=== PATIENT | male | born 1990 | race Two or more races ===

== ENCOUNTER 2017-09-13 09:27 | Emergency (ER) | payer OTHER ==
[~2017-09-13] VITALS: Ht 185.4 cm; Wt 83.9 kg
[2017-09-13 09:42] VITALS: BP 121/63
== END 2017-09-13 09:49 | disposition home or self-care (01) ==
LOC: ER 09:28
DX: J45.909 Unspecified asthma, uncomplicated (principal)
CPT/HCPCS: 99283; A4606; Z7610

== ENCOUNTER 2017-10-14 05:11 | Emergency (ER) | payer OTHER ==
[~2017-10-14] VITALS: Ht 185.4 cm; Wt 86.2 kg
[2017-10-14 05:25] VITALS: BP 122/77
== END 2017-10-14 05:32 | disposition home or self-care (01) ==
LOC: ER 05:12
DX: J45.909 Unspecified asthma, uncomplicated (principal); Z76.0 Encounter for issue of repeat prescription
CPT/HCPCS: 99283; A4606; Z7610

== ENCOUNTER 2017-11-06 12:24 | Emergency (ER) | payer OTHER ==
[~2017-11-06] VITALS: Ht 185.4 cm; Wt 83.9 kg
[2017-11-06 12:28] VITALS: BP 146/86
== END 2017-11-06 12:52 | disposition home or self-care (01) ==
LOC: ER 12:26
DX: J45.909 Unspecified asthma, uncomplicated (principal); Z76.0 Encounter for issue of repeat prescription; F12.90 Cannabis use, unspecified, uncomplicated; F17.200 Nicotine dependence, unspecified, uncomplicated
CPT/HCPCS: 99283; 99406; A4606; Z7610

== ENCOUNTER 2017-11-27 00:58 | Emergency (ER) | payer MEDICAID, OTHER ==
[~2017-11-27] VITALS: Ht 188 cm; Wt 83.9 kg
[2017-11-27 01:19] VITALS: BP 131/79
== END 2017-11-27 01:50 | disposition home or self-care (01) ==
LOC: ER 01:00
DX: Z13.89 Encounter for screening for other disorder (principal); J45.909 Unspecified asthma, uncomplicated
CPT/HCPCS: A4606; Z7502; Z7610

== ENCOUNTER 2018-01-05 11:48 | Emergency (ER) | payer MEDICAID ==
[~2018-01-05] VITALS: Ht 188 cm; Wt 83.9 kg
--- NOTE | 2018-01-05 12:00 | NUR ---
NASUEA, VOMITING S/P TAKIN TYLENOL 500MG PO x 10 PILLS OVER NIGHT FOR THE NIGHT. SEEN BY MD FOR EVAL. VSS. SAFETY AND COMFORT MEASURES PROVIDED. WILL MONITOR.
[2018-01-05 12:38] LABS: BASOPHILS # (AUTO) 0.1 /CMM (0.0-0.2); BASOPHILS % (AUTO) 0.9 % (0.0-2.0); EOSINOPHILS % (AUTO) 0.7 % (0.0-6.0); HEMATOCRIT 49 % (39-51); HEMOGLOBIN 16.5 g/dL (13.5-17.5); LYMPHOCYTES # (AUTO) 1.7 /CMM (0.8-4.8); LYMPHOCYTES % (AUTO) 16.5 % (20.0-44.0); MEAN CORPUSCULAR HGB CONC 33 g/dl (31.0-36.0); MEAN CORPUSCULAR VOLUME 89 fL (80-96); MONOCYTES # (AUTO) 0.3 /CMM (0.1-1.30); MONOCYTES % (AUTO) 3.1 % (2.0-12.0); NEUTROPHILS # (AUTO) 8.4 /CMM (1.8-8.9); NEUTROPHILS % (AUTO) 78.8 % (43.0-81.0); PLATELET COUNT (AUTO) 230 /CMM (150-450); RDW COEFFICIENT OF VARIATION 12.1 (11.5-15.0); RED BLOOD CELL COUNT(AUTO) 5.52 MIL/uL (4.5-6.0); WHITE BLOOD COUNT (AUTO) 10.6 K/uL (4.3-11.0)
[2018-01-05 12:45] LABS: CALCIUM, SERUM 10.1 mg/dL (8.5-10.1); CREATININE 1.1 mg/dL (0.6-1.3); POTASSIUM 3.6 mmol/L (3.5-5.1)
[2018-01-05 12:48] LABS: APPEARANCE,URINE Clear (CLEAR); BILIRUBIN,URINE Negative (NEGATIVE); BLOOD, URINE Negative Ery/uL (NEGATIVE); COLOR,URINE Yellow (YELLOW); KETONES,URINE 80 (NEGATIVE); LEUKOCYTE ESTERASE ,URINE Negative (NEGATIVE); NITRITE, URINE Negative (NEGATIVE); PH,URINE 5.5 (5.0-8.0); PROTEIN,URINE 100 mg/dl (NEGATIVE); UGLUCOSE Negative (NEGATIVE); UROBILINOGEN,URINE 0.2 EU/dL (0.2)
[2018-01-05 12:51] LABS: ALBUMIN 4.5 g/dL (3.4-5.0); BILIRUBIN,DIRECT 0.2 mg/dL (0.0-0.2); BILIRUBIN,TOTAL 0.6 mg/dL (0.2-1.0); TOTAL PROTEIN, SERUM 7.9 g/dL (6.4-8.2)
[2018-01-05 12:53] LABS: SALICYLATE 2.7 mg/dL (2.8-20.0)
[2018-01-05 12:57] LABS: BACTERIA,URINE None seen /HPF (None Seen); RBC,URINE 0-3 /HPF (0-2); SQUAMOUS EPITHELIAL CELL,UR Few /HPF (None Seen)
[2018-01-05] MEDS ORDERED: ONDANSETRON HCL/PF - ER 4 MG/2 ML VIAL IV ONE (13:00)
[2018-01-05] MEDS ORDERED: IV NS 0.9% 1,000 ML BAG IV ONE (13:00)
[2018-01-05] MEDS ORDERED: ONDANSETRON HCL/PF 4 MG/2 ML VIAL ONE (13:01)
--- NOTE | 2018-01-05 14:00 | NUR ---
Pt ambulatory with a steady gait.
--- NOTE | 2018-01-05 14:17 | NUR ---
POISON CONTROL CALLED,SPOKE WITH ASHISH, RECOMMENDED TYLENOL AND LIVER ENZYMES REPEATED AFTER 4 HRS, IF TRENDING UP, SHE RECOMMENDS TREATING WITH MUCOMYST.PATIENT CONFIRMED THAT HE ONLY TOOK 15 TABS OF 500 MG FROM 2100 YESTERDAY TO 0600 THIS MORNING. OTHERWISE, IF PATIENT IS NOT SURE ABOUT HOW MUCH HE TOOK, SHE RECOMMENDS TREATING WITH MUCOMYST. DR ADAMSON INFORMED AND TALKED TO THE PATIENT REGARDING PLAN TO REPEAT LABS.
--- NOTE | 2018-01-05 15:40 | NUR ---
Patient does not wish to proceed with medical care recommended by . Patient given information related to possible complications, up to and including , which could occur as a result of leaving the hospital at this time. Patient verbalizes understanding of risks involved due to leaving against medical advice. Patient has signed AMA form.
[2018-01-05 17:27] VITALS: BP 128/77
== END 2018-01-05 17:27 | disposition left against medical advice (07) ==
LOC: ER 11:53
DX: T39.1X1A Poisoning by 4-Aminophenol derivatives, accidental (unintentional), initial encounter (principal); R11.2 Nausea with vomiting, unspecified; R55 Syncope and collapse; J45.909 Unspecified asthma, uncomplicated; Y92.89 Other specified places as the place of occurrence of the external cause
CPT/HCPCS: 36415; 80048; 80076; 80305; 80329; 81001; 84484; 85025; 93005 ×2; 96361; 96374; 99285; A4606; G0480; J2405 ×2; J7030; Z7610; 81000-TC

== ENCOUNTER 2018-01-13 07:37 | Emergency (ER) | payer MEDICAID ==
[~2018-01-13] VITALS: Ht 188 cm; Wt 83.9 kg
--- NOTE | 2018-01-13 07:55 | NUR ---
PRESENTS TO ER C/O SOB x 2 DAYS. Hx OF ASTHMA. TAKES ALBUTEROL. PATIENT WHEEZING UPON AUSCULTATION. A/OX 4, BREATHING EVEN AND UNLABORED. NO DISTRESS NOTED. VITALS STABLE. SAFETY AND COMFORT MEASURES IN PLACE. AWAITING MD ORDERS.
[2018-01-13] MEDS ORDERED: predniSONE 20 MG TABLET ONE (08:06)
[2018-01-13] MEDS ORDERED: ALBUTEROL FS 2.5 MG/3 ML VIAL.NEB ONE (08:13)
[2018-01-13] MEDS ORDERED: IPRATROPIUM NEB FS 0.5 MG/2.5 ML AMPUL.NEB ONE (08:13)
--- NOTE | 2018-01-13 08:18 | NUR ---
RT AT BEDSIDE FOR BREATHING TX.
[2018-01-13] MEDS ORDERED: ALBUTEROL FS 2.5 MG/3 ML VIAL.NEB NEB ONE (08:30)
[2018-01-13] MEDS ORDERED: IPRATROPIUM NEB FS 0.5 MG/2.5 ML AMPUL.NEB NEB ONE (08:30)
[2018-01-13] MEDS ORDERED: predniSONE 20 MG TABLET PO ONE (08:30)
[2018-01-13 08:54] VITALS: BP 124/71
--- NOTE | 2018-01-13 08:56 | NUR ---
Patient discharged to home in stable condition. Written and verbal after care instructions given. Patient verbalizes understanding of instruction.
== END 2018-01-13 08:55 | disposition home or self-care (01) ==
LOC: ER 07:40
DX: J45.901 Unspecified asthma with (acute) exacerbation (principal)
CPT/HCPCS: 94640 ×2; 99284; A4606; J7512; Z7610

== ENCOUNTER 2018-02-06 01:05 | Emergency (ER) | payer MEDICAID ==
[~2018-02-06] VITALS: Ht 185.4 cm; Wt 86.2 kg
[2018-02-06] MEDS ORDERED: ALBUTEROL FS 2.5 MG/3 ML VIAL.NEB ONE (01:29)
[2018-02-06] MEDS ORDERED: ALBUTEROL FS 2.5 MG/3 ML VIAL.NEB NEB ONE ×2 (01:30→02:00)
[2018-02-06] MEDS ORDERED: IPRATROPIUM NEB FS 0.5 MG/2.5 ML AMPUL.NEB NEB ONE (01:30)
--- NOTE | 2018-02-06 01:34 | NUR ---
RT AT BEDSIDE FOR BREATHING TX
[2018-02-06] MEDS ORDERED: predniSONE 20 MG TABLET ONE (01:52)
[2018-02-06] MEDS ORDERED: predniSONE 20 MG TABLET PO ONE (02:00)
== END 2018-02-06 02:06 | disposition home or self-care (01) ==
LOC: ER 01:06
DX: J45.901 Unspecified asthma with (acute) exacerbation (principal); F12.980 Cannabis use, unspecified with anxiety disorder; F10.10 Alcohol abuse, uncomplicated; Y90.9 Presence of alcohol in blood, level not specified
CPT/HCPCS: A4606

== ENCOUNTER 2018-03-07 21:04 | Emergency (ER) | payer MEDICAID ==
[~2018-03-07] VITALS: Ht 188 cm; Wt 88.5 kg
[2018-03-07 21:13] VITALS: BP 112/63
--- NOTE | 2018-03-07 23:47 | NUR ---
PATIENT LEFT [facility] ED
== END 2018-03-07 23:49 | disposition left against medical advice (07) ==
LOC: ER 21:05
DX: Z53.21 Procedure and treatment not carried out due to patient leaving prior to being seen by health care provider (principal)
CPT/HCPCS: A4606; Z7610

== ENCOUNTER → 2018-03-09 | Emergency (ER) | payer MEDICAID ==
[~2018-03-09] VITALS: Ht 188 cm; Wt 88.5 kg
[2018-03-09 07:45] VITALS: BP 128/80
== END | disposition home or self-care (01) ==
LOC: ER 07:30
DX: J45.909 Unspecified asthma, uncomplicated (principal); F17.200 Nicotine dependence, unspecified, uncomplicated; F10.10 Alcohol abuse, uncomplicated; Y90.9 Presence of alcohol in blood, level not specified
CPT/HCPCS: 99283; 99406; A4606 ×2; Z7610 ×2

== ENCOUNTER 2018-04-13 05:19 | Emergency (ER) | payer MEDICAID ==
[~2018-04-13] VITALS: Ht 182.9 cm; Wt 88.5 kg
--- NOTE | 2018-04-13 05:44 | NUR ---
BLOOD SENT TO LAB WITH RESOURCE AGENT
--- NOTE | 2018-04-13 05:45 | NUR ---
Pt BIBRA CALLED BY GIRLFRIEND. Pt WAS EXPERIENCING SEIZURE IN BED. PER Pt STATEMENT HAD A PRIOR SEIZURE EPISODE X1 YESTERDAY. PER Pt STATEMENT HAD NO PRIOR HX OF SEIZURES IN THE PAST. Pt IS A/OX3, VERBAL, ABLE TO COMMUNICATE AND RESPOND TO QUESTIONS WELL. NO S/S OF ACUTE DISTRESS OR SOB NOTED. Pt IS GOWNED AND LAYING IN BED COMFORTABLY. WAITING TO BE SEEN BY MD. ARIA PEREZ.
[2018-04-13 05:46] LABS: BASOPHILS % (AUTO) 0.3 % (0.0-2.0); EOSINOPHILS % (AUTO) 2.1 % (0.0-6.0); HEMATOCRIT 49 % (39-51); HEMOGLOBIN 15.8 g/dL (13.5-17.5); LYMPHOCYTES # (AUTO) 2.8 /CMM (0.8-4.8); LYMPHOCYTES % (AUTO) 24.3 % (20.0-44.0); MEAN CORPUSCULAR HEMOGLOBIN 30 PG (26.0-33.0); MEAN CORPUSCULAR HGB CONC 33 g/dl (31.0-36.0); MEAN CORPUSCULAR VOLUME 92 fL (80-96); MONOCYTES # (AUTO) 0.6 /CMM (0.1-1.30); MONOCYTES % (AUTO) 5.3 % (2.0-12.0); NEUTROPHILS # (AUTO) 8.1 /CMM (1.8-8.9); PLATELET COUNT (AUTO) 259 /CMM (150-450); RDW COEFFICIENT OF VARIATION 12.7 (11.5-15.0); RED BLOOD CELL COUNT(AUTO) 5.29 MIL/uL (4.5-6.0); WHITE BLOOD COUNT (AUTO) 11.7 K/uL (4.3-11.0)
[2018-04-13] MEDS ORDERED: LEVETIRACETAM (500MG) 500 MG/5 ML VIAL IV ONE (05:49)
[2018-04-13 06:02] LABS: CARBON DIOXIDE 20 mmol/L (21-32); CHLORIDE 105 mmol/L (98-107); CREATININE 1.5 mg/dL (0.6-1.3); GLUCOSE 111 mg/dL (74-106); POTASSIUM 3.6 mmol/L (3.5-5.1); SODIUM SERUM 141 mmol/L (136-145); UREA NITROGEN, BLOOD 12 mg/dL (7-18)
[2018-04-13 06:05] LABS: INR 1.05 (0.87-1.13)
[2018-04-13 06:09] LABS: ALANINE AMINOTRANSFERASE 11 U/L (12-78); ALBUMIN 3.8 g/dL (3.4-5.0); ALCOHOL, BLOOD < 3 mg/dL (0-0); ALKALINE PHOSPHATASE 62 U/L (46-116); ASPARTATE AMINOTRANSFERASE 38 U/L (15-37); BILIRUBIN,DIRECT 0.1 mg/dL (0.0-0.2); BILIRUBIN,TOTAL 0.5 mg/dL (0.2-1.0); TOTAL PROTEIN, SERUM 7.2 g/dL (6.4-8.2)
[2018-04-13] MEDS: LEVETIRACETAM (500MG) 500 MG in IV NS 0.9% 100 ML IV SCH ×2 (06:11→07:08)
--- NOTE | 2018-04-13 06:11 | NUR ---
STARTED Pt ON KEPPRA 500MG IV @210ML/HR. INFUSING WELL ON LAC #18G.
--- NOTE | 2018-04-13 06:28 | NUR ---
SEEN BY MD AT BEDSIDE Addendum: 04/13/18 at 0711 by ICHMAGDY SEEN BY CHANGE OF SHIFT AM DR
--- NOTE | 2018-04-13 07:11 | NUR ---
Patient discharged to home in stable condition. Written and verbal after care instructions given. Patient verbalizes understanding of instruction. Patient left on foot walking with steady gait. IV access removed and secured with gauze and tape; no signs of bleeding noted. No s/s of acute distress or sob noted. VS stable.
[2018-04-13 07:18] VITALS: BP 135/71
== END 2018-04-13 07:19 | disposition home or self-care (01) ==
LOC: ER 05:21
DX: R56.9 Unspecified convulsions (principal); F12.10 Cannabis abuse, uncomplicated; J45.909 Unspecified asthma, uncomplicated; F10.10 Alcohol abuse, uncomplicated; I49.8 Other specified cardiac arrhythmias; Y90.0 Blood alcohol level of less than 20 mg/100 ml
CPT/HCPCS: 36415; 80048; 80076; 85025; 85730; 93005; 96365; 99285; A4606; G0480; J1953; J7050; Z7610

== ENCOUNTER 2018-05-04 08:42 | Emergency (ER) | payer MEDICAID, OTHER ==
[~2018-05-04] VITALS: Ht 185.4 cm; Wt 88.5 kg
[2018-05-04 08:42] VITALS: BP 128/71
== END 2018-05-04 09:04 | disposition home or self-care (01) ==
LOC: ER 08:44
DX: M25.512 Pain in left shoulder (principal); J45.909 Unspecified asthma, uncomplicated; G40.909 Epilepsy, unspecified, not intractable, without status epilepticus; F12.10 Cannabis abuse, uncomplicated; F10.10 Alcohol abuse, uncomplicated; Y90.9 Presence of alcohol in blood, level not specified; V00.131A Fall from skateboard, initial encounter; Y93.51 Activity, roller skating (inline) and skateboarding; Y92.89 Other specified places as the place of occurrence of the external cause; Y99.8 Other external cause status
CPT/HCPCS: 99282; A4606; Z7610

== ENCOUNTER 2018-07-08 07:32 | Emergency (ER) | payer OTHER ==
[~2018-07-08] VITALS: Ht 188 cm; Wt 65.8 kg
[2018-07-08 07:38] VITALS: BP 124/64
== END 2018-07-08 08:24 | disposition home or self-care (01) ==
LOC: ER 07:37
DX: S43.492A Other sprain of left shoulder joint, initial encounter (principal); J45.909 Unspecified asthma, uncomplicated; V00.131A Fall from skateboard, initial encounter; Y93.51 Activity, roller skating (inline) and skateboarding; Y92.39 Other specified sports and athletic area as the place of occurrence of the external cause; Y99.8 Other external cause status
CPT/HCPCS: A4606; Z7610

== ENCOUNTER 2018-07-10 02:21 | Emergency (ER) | payer OTHER ==
[~2018-07-10] VITALS: Ht 188 cm; Wt 88.5 kg
[2018-07-10] MEDS ORDERED: ALBUTEROL FS 2.5 MG/3 ML VIAL.NEB NEB ONE (02:30)
[2018-07-10] MEDS ORDERED: predniSONE 20 MG TABLET PO ONE (02:30)
[2018-07-10] MEDS ORDERED: IPRATROPIUM NEB FS 0.5 MG/2.5 ML AMPUL.NEB NEB ONE (02:30)
--- NOTE | 2018-07-10 02:30 | NUR ---
PT BIB SELF. COMP OF FEELING SHORT OF BREATH. NO ACUTE DISTRESS AT THIS TIME. AWAITING MD REYES.
[2018-07-10] MEDS ORDERED: predniSONE 20 MG TABLET ONE (02:34)
[2018-07-10] MEDS ORDERED: ALBUTEROL FS 2.5 MG/3 ML VIAL.NEB ONE (02:36)
[2018-07-10] MEDS ORDERED: IPRATROPIUM NEB FS 0.5 MG/2.5 ML AMPUL.NEB ONE (02:36)
[2018-07-10 03:33] VITALS: BP 124/81
== END 2018-07-10 03:35 | disposition home or self-care (01) ==
LOC: ER 02:23
DX: J45.901 Unspecified asthma with (acute) exacerbation (principal); F12.90 Cannabis use, unspecified, uncomplicated; F17.200 Nicotine dependence, unspecified, uncomplicated
CPT/HCPCS: A4606; Z7610

== ENCOUNTER 2018-07-19 00:36 | Emergency (ER) | payer OTHER ==
[~2018-07-19] VITALS: Ht 177.8 cm; Wt 86.2 kg
[2018-07-19 00:50] VITALS: BP 141/79
[2018-07-19] MEDS ORDERED: ALBUTEROL FS 2.5 MG/0.5 ML VIAL.NEB NEB ONE (01:00)
[2018-07-19] MEDS ORDERED: ALBUTEROL FS 2.5 MG/3 ML VIAL.NEB ONE (01:11)
[2018-07-20] MEDS ORDERED: ALBUTEROL FS 2.5 MG/0.5 ML VIAL.NEB ONE (22:31)
== END 2018-07-19 01:44 | disposition home or self-care (01) ==
LOC: ER 00:38
DX: J45.909 Unspecified asthma, uncomplicated (principal); F10.10 Alcohol abuse, uncomplicated; F17.200 Nicotine dependence, unspecified, uncomplicated; F12.10 Cannabis abuse, uncomplicated; Y90.9 Presence of alcohol in blood, level not specified
CPT/HCPCS: 99283; A4606; Z7610

== ENCOUNTER 2018-07-20 22:03 | Emergency (ER) | payer OTHER ==
[~2018-07-20] VITALS: Ht 185.4 cm; Wt 90.7 kg
[2018-07-20 22:12] VITALS: BP 129/79
[2018-07-20] MEDS ORDERED: ALBUTEROL FS 2.5 MG/0.5 ML VIAL.NEB NEB ONE (22:30)
== END 2018-07-20 23:01 | disposition home or self-care (01) ==
LOC: ER 22:06
DX: J98.01 Acute bronchospasm (principal); F17.200 Nicotine dependence, unspecified, uncomplicated
CPT/HCPCS: A4606; Z7610

== ENCOUNTER 2018-07-29 12:45 | Emergency (ER) | payer OTHER ==
[~2018-07-29] VITALS: Ht 185.4 cm; Wt 88.5 kg
[2018-07-29 12:45] VITALS: BP 130/71
[2018-07-29] MEDS ORDERED: DEXAMETHASONE SOLN 1 MG/1 ML UDC PO ONE (14:00)
[2018-07-29] MEDS ORDERED: DEXAMETHASONE 4 MG TABLET ONE (14:14)
[2018-07-29] MEDS ORDERED: DEXAMETHASONE 1 MG TABLET ONE (14:14)
== END 2018-07-29 14:19 | disposition home or self-care (01) ==
LOC: ER 12:47
DX: J45.909 Unspecified asthma, uncomplicated (principal); F17.200 Nicotine dependence, unspecified, uncomplicated
CPT/HCPCS: J8540

== ENCOUNTER 2018-09-04 18:51 | Emergency (ER) | payer OTHER ==
[~2018-09-04] VITALS: Ht 185.4 cm; Wt 93.9 kg
--- NOTE | 2018-09-04 18:59 | NUR ---
pt bibra from home to er bed 10. here for witnessed seizure by girlfriend. per report pt stopped taking keppra since march. pt is awake. verbally responsive and cooperative. no oral trauma noted. gowned and placed on monitor. vss. placed on seizure precaution. awaiting md jaramillo.
--- NOTE | 2018-09-04 19:11 | NUR ---
dr jarvis at bedside for eval.
--- NOTE | 2018-09-04 19:21 | NUR ---
RECEIVED REPORT FROM ONEIL FOR RAFAELA
--- NOTE | 2018-09-04 19:21 | NUR ---
report to link scott for dago.
[2018-09-04] MEDS ORDERED: LEVETIRACETAM (500MG) 500 MG/5 ML VIAL IV ONE (19:28)
[2018-09-04] MEDS ORDERED: LEVETIRACETAM (500MG) 1,000 MG in IV NS 0.9% 100 ML IV ONE (19:30)
[2018-09-04] MEDS ORDERED: IV NS 0.9% 1,000 ML BAG IV ONE (19:30)
--- NOTE | 2018-09-04 20:29 | NUR ---
Patient discharged to home in stable condition. Written and verbal after care instructions given. Patient verbalizes understanding of instruction. IV removed. Catheter intact and site benign. Pressure and 4x4 applied to site. No bleeding noted. Pt ambulatory with a steady gait
[2018-09-04 20:30] VITALS: BP 133/69
== END 2018-09-04 20:30 | disposition home or self-care (01) ==
LOC: ER 18:57
DX: R56.9 Unspecified convulsions (principal); E86.0 Dehydration; J45.909 Unspecified asthma, uncomplicated; F12.90 Cannabis use, unspecified, uncomplicated; Z91.14 Patient's other noncompliance with medication regimen
CPT/HCPCS: 96361; 96365; 99283; A4606; J1953 ×2; J7030 ×3

== ENCOUNTER 2018-09-27 06:52 | Emergency (ER) | payer OTHER ==
[~2018-09-27] VITALS: Ht 188 cm; Wt 85.3 kg
[2018-09-27 06:57] VITALS: BP 131/75
== END 2018-09-27 07:08 | disposition home or self-care (01) ==
LOC: ER 06:54
DX: J45.909 Unspecified asthma, uncomplicated (principal); F12.90 Cannabis use, unspecified, uncomplicated
CPT/HCPCS: 99283; A4606

== ENCOUNTER 2018-11-07 09:55 | Emergency (ER) | payer OTHER ==
[~2018-11-07] VITALS: Ht 185.4 cm; Wt 93.0 kg
[2018-11-07 09:59] VITALS: BP 130/81
--- NOTE | 2018-11-07 10:15 | NUR ---
DPatient discharged to home in stable condition. Written and verbal after care instructions given. Patient verbalizes understanding of instruction.
== END 2018-11-07 10:16 | disposition home or self-care (01) ==
LOC: ER 09:59
DX: J45.901 Unspecified asthma with (acute) exacerbation (principal); F12.90 Cannabis use, unspecified, uncomplicated

== ENCOUNTER 2018-11-15 09:15 | Emergency (ER) | payer OTHER ==
[~2018-11-15] VITALS: Ht 185.4 cm; Wt 93.0 kg
[2018-11-15 09:15] VITALS: BP 136/74
== END 2018-11-15 09:58 | disposition home or self-care (01) ==
LOC: ER 09:29
DX: J45.909 Unspecified asthma, uncomplicated (principal); F12.90 Cannabis use, unspecified, uncomplicated

== ENCOUNTER 2019-07-17 07:36 | Emergency (ER) | payer OTHER ==
[~2019-07-17] VITALS: Ht 185.4 cm; Wt 88.5 kg
--- NOTE | 2019-07-17 07:42 | NUR ---
CAME IN FOR ASTHMA ATTACK x 2 DAYS, 97% ON RA. TO ER BED 11, HOOKED TO MONITOR, PROVIDED W WARM BLANKET, AWAITING MD REYES.
--- NOTE | 2019-07-17 07:43 | NUR ---
DR HINOJOSA AT BEDSIDE
--- NOTE | 2019-07-17 07:56 | NUR ---
ONGOING BREATHING TREATMENT
[2019-07-17] MEDS ORDERED: ALBUTEROL FS 2.5 MG/3 ML VIAL.NEB ONE (07:57)
[2019-07-17] MEDS ORDERED: IPRATROPIUM NEB FS 0.5 MG/2.5 ML AMPUL.NEB ONE (07:57)
[2019-07-17] MEDS ORDERED: predniSONE 20 MG TABLET ONE (07:58)
[2019-07-17] MEDS ORDERED: ALBUTEROL FS 2.5 MG/3 ML VIAL.NEB CONTNEB ONE (08:00)
[2019-07-17] MEDS ORDERED: predniSONE 20 MG TABLET PO ONE (08:00)
[2019-07-17] MEDS ORDERED: IPRATROPIUM NEB FS 0.5 MG/2.5 ML AMPUL.NEB NEB ONE (08:00)
--- NOTE | 2019-07-17 08:30 | NUR ---
Patient discharged to home in stable condition. Written and verbal after care instructions given. Patient verbalizes understanding of instruction.
[2019-07-17 08:31] VITALS: BP 132/74
== END 2019-07-17 08:31 | disposition home or self-care (01) ==
LOC: ER 07:41
DX: J45.909 Unspecified asthma, uncomplicated (principal); F17.200 Nicotine dependence, unspecified, uncomplicated
CPT/HCPCS: 94640; 99283; J7512